=== PATIENT | male | born 2000 | race Caucasian/White ===

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

== ENCOUNTER 2023-05-05 00:15 | Emergency (ER) | payer OTHER ==
[~2023-05-05] VITALS: Ht 175.3 cm; Wt 143.3 kg
[2023-05-05 00:25] VITALS: BP 144/60; PULSE 96; RESP 15; TEMP 97.3; O2SAT 98
[2023-05-05] MEDS ORDERED: FAMOTIDINE 20 MG TAB PO ONE (01:45)
[2023-05-05] MEDS ORDERED: ONDANSETRON 4 MG ODT PO ONE (01:45)
[2023-05-05] MEDS ORDERED: LOPE2TAB PO (01:54)
[2023-05-05] MEDS ORDERED: FAMO-90 PO (01:54)
[2023-05-05] MEDS ORDERED: ONDA-188 SL (01:54)
[2023-05-05 02:44] VITALS: BP 144/60; PULSE 96; RESP 15; TEMP 97.3; O2SAT 98
== END 2023-05-05 02:44 | disposition home or self-care (01) ==
LOC: MED 00:15
DX: R19.7 Diarrhea, unspecified (principal); R11.10 Vomiting, unspecified; Z79.899 Other long term (current) drug therapy
CPT/HCPCS: 99283; Q0162